=== PATIENT | male | born 1975 | race Caucasian/White ===

== ENCOUNTER 2019-03-01 08:49 | Emergency (ER) | payer BC ==
[2019-03-01] MEDS ORDERED: Hyoscyamine 0.125 MG Tab.SL SL ONE ×2 (09:17→09:27)
[2019-03-01] MEDS ORDERED: HYDROmorphone 1 MG/ML Syringe IVPUSH ONE (09:18)
[2019-03-01] MEDS ORDERED: Metoclopramide 10 MG/2 ML SDV IVPUSH ONE (09:18)
--- NOTE | 2019-03-01 09:21 | EDM.PDOC ---
ED HPI GENERAL MEDICAL PROBLEM - General Chief Complaint: Chest Pain Stated Complaint: TIGHTNESS IN CHEST Time Seen by Provider: 03/01/19 09:16 Source of Information: Reports: Patient, Family (spouse) History Limitations: Reports: No Limitations - History of Present Illness INITIAL COMMENTS - FREE TEXT/NARRATIVE: 43-year-old male presents to the ED with severe epigastric pain rating up into his central chest and through to his mid back between the shoulder blades. Pain radiates along both sides of his costal margins anteriorly. Pain is worsened by deep breathing. Patient states he woke around 0430 hrs. this morning with the pain. He did eat late having had broths and some alcohol before bed. He has had similar type pain but almost always goes away on its own. Burping and belching does not help. He tried to vomit but could not. He doesn't know if he has a hiatal hernia. He does experience moderate reflux at times. Does not know if he has any gallstones. No previous abdominal surgery. Onset: Today Onset Date: 03/01/19 Onset Time: 04:30 Duration: Hour(s): Location: Reports: Chest (Epigastrium rating up into the retrosternal chest. Radiating from the epigastrium.), Abdomen Quality: Reports: Ache, Pressure Severity: Moderate (8 out of 10) Improves with: Reports: Rest (Sitting up seems to help as well.) Worsens with: Reports: Other Context: Denies: Activity, Exercise, Lifting, Sick Contact, Trauma, Other Associated Symptoms: Reports: Chest Pain, Loss of Appetite, Nausea/Vomiting ( Nausea without vomiting.). 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 ) Epigastric Pain Score (Numeric/FACES): 4 - Related Data Allergies Allergy/AdvReac Type Severity Reaction Status Date / Time No Known Allergies Allergy Verified 03/01/19 08:57 Home Meds: Home Meds Dicyclomine [Bentyl] 20 mg PO Q6H PRN #8 tablet 03/01/19 [Rx] Past Medical History Gastrointestinal History: Reports: GERD (Very rare heartburn.) Endocrine/Metabolic History: Reports: Obesity/BMI 30+ Social & Family History - Living Situation & Occupation Living situation: Reports: Occupation: Employed ED ROS GENERAL - Review of Systems Review Of Systems: See Below Constitutional: Reports: Decreased Appetite. Denies: Fever, Chills, Weakness HEENT: Reports: Glasses Respiratory: Reports: Shortness of Breath, Other. Denies: Wheezing, Pleuritic Chest Pain, Cough (Deep breathing makes the pain worse.), Sputum Cardiovascular: Reports: Chest Pain, Dyspnea on Exertion. Denies: Blood Pressure Problem (Lower retrosternal pressure discomfort.), Claudication, Edema , Lightheadedness, Orthopnea Endocrine: Reports: No Symptoms (Sometimes) GI/Abdominal: Reports: Abdominal Pain, Decreased Appetite (Epigastric pain rating through to his mid back between the shoulder blades and along the costal margins bilaterally. Pain is worsened by deep breathing.), Nausea. Denies: Vomiting : Reports: No Symptoms Musculoskeletal: Reports: No Symptoms Skin: Reports: No Symptoms Neurological: Reports: No Symptoms Psychiatric: Reports: No Symptoms Hematologic/Lymphatic: Reports: No Symptoms Immunologic: Reports: No Symptoms ED EXAM, GENERAL - Physical Exam Exam: See Below Exam Limited By: No Limitations General Appearance: Alert, WD/WN, Moderate Distress Eye Exam: Bilateral Eye: Normal Inspection (No scleral icterus) Respiratory/Chest: No Respiratory Distress, Lungs Clear, Normal Breath Sounds, No Accessory Muscle Use, Chest Non-Tender Cardiovascular: Normal Peripheral Pulses, Regular Rate, Rhythm, No Edema, No Gallop, No Murmur, No Rub Peripheral Pulses: 3+: Posterior Tibial (L), Posterior Tibial (R), Dorsalis Pedis (L), Dorsalis Pedis (R) GI/Abdominal: No Organomegaly (Abdominal girth limits ability to palpate solid organs.), Distended (Bowel sounds are very quiet sent at this time. Without tympany.), Guarding, Tender, Abnormal Bowel Sounds, Other. No: Rigid (Marked tenderness epigastrium but also mildly in the right upper quadrant along the right costal margin with a mildly positive Sousa sign.), Rebound (Male) Exam: No Hernia Back Exam: Normal Inspection, Full Range of Motion. No: CVA Tenderness (L), CVA Tenderness (R) Extremities: Normal Inspection, Normal Range of Motion, Non-Tender Neurological: Alert, Oriented, CN II-XII Intact, Normal Cognition Psychiatric: Anxious, Other Skin Exam: Warm, Dry (In a lot of discomfort), Intact, Normal Color, No Rash EKG INTERPRETATION EKG Date: 03/01/19 Time: 08:53 Rhythm: NSR Rate (Beats/Min): 86 [place]: Normal P-Wave: Enlarged (Consider mild left atrial enlargement.) QRS: Other (RS are prime wave V1 normal variant. He was an incomplete right bundle branch block pattern. Early R-wave transition. Consider septal hypertrophy.) ST-T: Normal QT: Normal EKG Interpretation Comments: Abnormal ECG no signs of ischemia Course - Vital Signs Last Recorded V/S: Last Vital Signs Temp 36.2 C 03/01/19 08:54 Pulse 85 03/01/19 11:15 Resp 16 03/01/19 11:15 BP 148/84 H 03/01/19 11:15 Pulse Ox 95 03/01/19 11:15 - Orders/Labs/Meds Orders: Active Orders 24 hr Category Date Time Status EKG Documentation Completion [RC] STAT Care 03/01/19 09:19 Active Chest 2V [CR] Stat Exams 03/01/19 09:19 Taken Labs: Laboratory Tests 03/01/19 03/01/19 03/01/19 Range/Units 09:35 09:35 09:35 WBC 9.80 H (4.23-9.07) K/mm3 RBC 5.10 (4.63-6.08) M/mm3 Hgb 15.7 (13.7-17.5) gm/L Hct 45.3 (40.1-51.0) % MCV 88.8 (79.0-92.2) fl MCH 30.8 (25.7-32.2) pg MCHC 34.7 (32.2-35.5) g/dl RDW Std Deviation 39.6 (35.1-43.9) fL Plt Count 386 H (163-337) K/mm3 MPV 9.3 L (9.4-12.3) fl Neutrophils % (Manual) 82 H (40-60) % Band Neutrophils % 0 (0-10) % Lymphocytes % (Manual) 14 L (20-40) % Atypical Lymphs % 0 % Monocytes % (Manual) 2 (2-10) % Eosinophils % (Manual) 1 (0.8-7.0) % Basophils % (Manual) 1 (0.2-1.2) Platelet Estimate Adequate RBC Morph Comment Normal Sodium 139 (136-145) mEq/L Potassium 4.4 (3.5-5.1) mEq/L Chloride 103 (98-107) mEq/L Carbon Dioxide 25 (21-32) mEq/L Anion Gap 15.4 H (5-15) BUN 12 (7-18) mg/dL Creatinine 1.1 (0.7-1.3) mg/dL Est Cr Clr Drug Dosing 79.29 mL/min Estimated GFR (MDRD) > 60 (>60) mL/min BUN/Creatinine Ratio 10.9 L (14-18) Glucose 107 H (74-106) mg/dL Calcium 9.3 (8.5-10.1) mg/dL Total Bilirubin 0.6 (0.2-1.0) mg/dL AST 122 H (15-37) U/L ALT 131 H (16-63) U/L Alkaline Phosphatase 84 (46-116) U/L CK-MB (CK-2) 1.5 (0-3.6) ng/ml Troponin I < 0.017 (0.00-0.056) ng/mL C-Reactive Protein 0.9 (<1.0) mg/dL Total Protein 7.6 (6.4-8.2) g/dl Albumin 4.1 (3.4-5.0) g/dl Globulin 3.5 gm/dL Albumin/Globulin Ratio 1.2 (1-2) Amylase 40 (25-115) U/L Meds: Medications Discontinued Medications Generic Name Dose Route Start Last Admin Trade Name Freq PRN Reason Stop Dose Admin Dicyclomine HCl 20 mg 03/01/19 10:57 03/01/19 11:07 Bentyl PO 03/01/19 10:58 20 mg ONETIME ONE Administration Hydromorphone HCl 1 mg 03/01/19 09:18 03/01/19 09:39 Dilaudid IVPUSH 03/01/19 09:19 1 mg ONETIME ONE Administration Hyoscyamine 0.125 mg 03/01/19 09:17 03/01/19 09:40 Hyomax-Sl SL 03/01/19 09:18 0.125 mg ONETIME ONE Administration Hyoscyamine 0.125 mg 03/01/19 09:27 03/01/19 09:44 Hyomax-Sl SL 03/01/19 09:28 0.125 mg ONETIME ONE Administration Sodium Chloride 1,000 mls @ 150 mls/hr 03/01/19 09:30 03/01/19 09:39 Normal Saline IV 150 mls/hr ASDIRECTED WILLOW Administration Metoclopramide HCl 10 mg 03/01/19 09:18 03/01/19 09:41 Reglan IVPUSH 03/01/19 09:19 10 mg ONETIME ONE Administration - Radiology Interpretation Free Text/Narrative:: 43-year-old male presents to the ED with acute onset of epigastric pain rating up retrosternally into his chest. It radiates through to his mid back between the shoulder blades as well. It also radiates along both costal margins anteriorly and is made worse by deep breathing. Associated nausea without inability to vomit. He has had similar type pain before but it's always gone away on its own. He will schedule for 30 hours this morning with this discomfort and is persisted. He did eat late last night and did have alcohol on board. Examination reveals marked tenderness in the epigastrium the abdomen along the right costal margin. Clinically I believe he has a hiatal hernia causing his current pain syndrome. ECG does not show any signs of ischemia. Lungs are clear. Plan routine labs will be obtained. IV will be normal saline 150 mils per hour. He will be given Levsin 0.125 mg sublingual now and repeat in 10 minutes. Dilaudid 1 mg IV with Reglan 10 mg IV for pain relief. Two-view chest x-ray to be obtained. - Re-Assessments/Exams Free Text/Narrative Re-Assessment/Exam: 03/01/19 10:05 patient reports that his pain is much improved down to 1 or 2 out of 10. He cannot take a full deep breath without severe pain. Two-view chest x-ray did not show me any evidence of gastric air behind the heart to support a diagnosis of hiatal hernia. 03/01/19 10:22 Labs reveal a normal white count at 9.80 with 82% neutrophils no bands reported. Hemoglobin 15.7 with hematocrit of 45.3. Total count is 386, 000. Sodium 139 with a potassium of 4.4. Chloride 103 with a bicarbonate of 25. Anion gap is 15.4. BUN is 12 with a creatinine of 1.1. GFR is greater than 60. Glucose is 107 with a calcium of 9.3. Bilirubin is 0.6. AST is mildly elevated at 122. ALT is 131. Alk phosphatase is 84. C-reactive protein is 0.9 total protein 7.6. Amylase is 40. 03/01/19 10:58 feeling much better. He's been able to sleep well in the department. We'll give him Bentyl 20 mg by mouth now and a prescription for 8 more tablets in case this happens again. Clinically he has a sliding hiatal hernia that causes significant chest pain. Positive cores try not to go to bed with a full stomach etc. He doesn't get a lot of heartburn therefore it would not place him on any proton pump inhibitor or acid reducing agent. Departure - Departure Time of Disposition: 10:59 Disposition: Home, Self-Care 01 Condition: Fair Clinical Impression: Non-cardiac chest pain, Hiatal hernia without gangrene and obstruction Prescriptions: Dicyclomine [Bentyl] 20 mg PO Q6H PRN #8 tablet PRN Reason: Abdominal cramps/diarrhea Instructions: Hiatal Hernia Referrals: Ade Aponte NP [Primary Care Provider] - Forms: ED Department Discharge Additional Instructions: Evaluation the emergency room this morning regards to the development of severe epigastric abdominal pain rating up into the chest and along both lower portions of the rib cage worsened by deep breathing. This pain awoke around 4: 30 hours this morning. Examination confirmed point tenderness in the epigastrium of the abdomen. Chest x-ray was within normal limits ECG is within normal limits and lab tests all proved to be normal as well. You're treated with combination of fluids Dilaudid 1 mg and Reglan 10 mg to relieve acute spasm of the food pipe as well as Levsin 0.125 mg tablets under the tongue which really relieve spasm of the food pipe and stomach. You're given Bentyl 20 mg by mouth before departure from the ED. Try and set up for the next 4 hours or so I elect gravity. The stomach back down into the abdomen where prolonged. Eating something heavy such as oatmeal or a large amount of fluids will pull the stomach back down as well. Try not to go to bed with a full stomach i.e. nothing to really eat or drink for 3 hours before going to bed may help prevent this in the future. I did write a prescription for Bentyl 20 tablets 20 mg every 6 hours as needed if for similar pain development. Follow-up with personal care physician if any further problems occur. No true you may remove remaining quite tender in the epigastrium for 2-3 days. Return to the ED if the pain worsens. - My Orders Last 24 Hours: My Active Orders 03/01/19 09:19 EKG Documentation Completion [RC] STAT Chest 2V [CR] Stat - Assessment/Plan Last 24 Hours: My Active Orders 03/01/19 09:19 EKG Documentation Completion [RC] STAT Chest 2V [CR] Stat
[2019-03-01] MEDS ORDERED: Sodium Chloride 0.9% 1,000 ML IV SCH (09:30)
[2019-03-01] MEDS ORDERED: Dicyclomine 10 MG Cap PO ONE (10:57)
[2019-03-01 11:16] VITALS: BP 148/84
--- NOTE | 2019-03-02 11:21 | CR ---
Chest: Two views of the chest were obtained. Comparison: No prior study. Heart size and mediastinum are normal. Lungs are clear with no acute parenchymal change. Bony structures are within normal limits for the patient's age. Impression: 1. Nothing acute is appreciated on two-view chest x-ray. Diagnostic code #1
== END 2019-03-01 11:14 | disposition home or self-care (01) ==
LOC: JD.ED 08:49
DX: K44.9 Diaphragmatic hernia without obstruction or gangrene (principal); E66.9 Obesity, unspecified
CPT/HCPCS: 36415; 71046; 80053; 82150; 82553; 84484; 85007; 85027; 86140; 93005; 96361; 96374; 96375; 99285; A9270; J1170; J2765; J7040; 93010

== ENCOUNTER 2021-09-25 08:38 | Day surgery (SDC) | payer BC ==
[~2021-09-25 08:38] MED LIST: Albuterol 0.083% 2.5 MG/3 ML Neb Soln NEB PRN; Lidocaine 1%/Sod Bicarbonate in NS 8.4% 1 ML Syringe IDERM PRN
[2021-09-25] MEDS ORDERED: Sodium Chloride 0.9% 10 ML Syringe FLUSH SCH (09:00)
[2021-09-25] MEDS: Lactated Ringers 1,000 ML IV SCH (09:13)
[2021-09-25] MEDS ORDERED: Lidocaine 1% 4 ML ONE (09:44)
[2021-09-25] MEDS ORDERED: Midazolam 1 MG/ML 2 ML SDV ONE (09:45)
[2021-09-25] MEDS ORDERED: Propofol 200 MG/20 ML SDV ONE ×4 (09:45→10:33)
[2021-09-25] MEDS: Ondansetron 4 MG/2 ML SDV IVPUSH ONE (11:40)
[2021-09-25 13:45] VITALS: BP 163/84; PULSE 84
== END 2021-09-25 13:40 | disposition home or self-care (01) ==
LOC: JD.SDS 08:38
PROVIDERS: ATTEND Surgery
DX: D12.3 Benign neoplasm of transverse colon (principal); D12.8 Benign neoplasm of rectum; K22.70 Barrett's esophagus without dysplasia; K29.70 Gastritis, unspecified, without bleeding; K20.90 Esophagitis, unspecified without bleeding; K64.8 Other hemorrhoids; K31.89 Other diseases of stomach and duodenum; I78.1 Nevus, non-neoplastic; E66.9 Obesity, unspecified; G47.33 Obstructive sleep apnea (adult) (pediatric); F41.9 Anxiety disorder, unspecified; Z87.891 Personal history of nicotine dependence; Z90.49 Acquired absence of other specified parts of digestive tract; Z79.899 Other long term (current) drug therapy; Z79.890 Hormone replacement therapy; Z98.890 Other specified postprocedural states
CPT/HCPCS: 00813; J2250; J2405; J2704; J7120